=== PATIENT | male | born 1940 | race Caucasian/White ===

== ENCOUNTER 2019-08-11 11:10 | Day surgery (SDC) | payer MEDICARE, OTHER ==
[2019-08-11] MEDS ORDERED: LIDOcaine 2% 5ml jelly ONE (12:23)
== END 2019-08-11 13:10 | disposition home or self-care (01) ==
LOC: WOUND CARE 11:10
PROVIDERS: ATTEND Nurse Practitioner Family
DX: I70.235 Atherosclerosis of native arteries of right leg with ulceration of other part of foot (principal); L97.512 Non-pressure chronic ulcer of other part of right foot with fat layer exposed; I10 Essential (primary) hypertension; J44.9 Chronic obstructive pulmonary disease, unspecified; H26.9 Unspecified cataract; H40.9 Unspecified glaucoma; H35.00 Unspecified background retinopathy; F17.290 Nicotine dependence, other tobacco product, uncomplicated
CPT/HCPCS: 97597

== ENCOUNTER 2019-08-25 10:59 | Day surgery (SDC) | payer MEDICARE, OTHER | END 2019-08-25 11:50 | disposition home or self-care (01) | LOC: WOUND CARE 10:59 | PROVIDERS: ATTEND Nurse Practitioner Family | DX: I70.235 Atherosclerosis of native arteries of right leg with ulceration of other part of foot (principal); L97.512 Non-pressure chronic ulcer of other part of right foot with fat layer exposed; I10 Essential (primary) hypertension; J44.9 Chronic obstructive pulmonary disease, unspecified; H26.9 Unspecified cataract; H40.9 Unspecified glaucoma; H35.00 Unspecified background retinopathy; F17.290 Nicotine dependence, other tobacco product, uncomplicated | CPT/HCPCS: 97597 ==

== ENCOUNTER 2019-09-01 10:53 | Day surgery (SDC) | payer MEDICARE, OTHER ==
[2019-09-01] MEDS ORDERED: LIDOcaine 2% 5ml jelly ONE (11:11)
== END 2019-09-01 12:20 | disposition home or self-care (01) ==
LOC: WOUND CARE 10:53
PROVIDERS: ATTEND Nurse Practitioner Family
DX: I70.235 Atherosclerosis of native arteries of right leg with ulceration of other part of foot (principal); L97.512 Non-pressure chronic ulcer of other part of right foot with fat layer exposed; I10 Essential (primary) hypertension; J44.9 Chronic obstructive pulmonary disease, unspecified; H26.9 Unspecified cataract; H40.9 Unspecified glaucoma; H35.00 Unspecified background retinopathy; F17.290 Nicotine dependence, other tobacco product, uncomplicated
CPT/HCPCS: 97597

== ENCOUNTER 2019-09-08 11:00 | Outpatient (CLI) | payer MEDICARE, OTHER | END 2019-09-08 12:21 | disposition home or self-care (01) | LOC: EDSTATUS 11:00 → WOUND CARE 11:00 | PROVIDERS: ATTEND Surgery | DX: I70.235 Atherosclerosis of native arteries of right leg with ulceration of other part of foot (principal); L97.512 Non-pressure chronic ulcer of other part of right foot with fat layer exposed; I10 Essential (primary) hypertension; J44.9 Chronic obstructive pulmonary disease, unspecified; H26.9 Unspecified cataract; H40.9 Unspecified glaucoma; H35.00 Unspecified background retinopathy; F17.290 Nicotine dependence, other tobacco product, uncomplicated | CPT/HCPCS: G0463 ==